=== PATIENT | female | born 1995 | race African-American/Black ===

== ENCOUNTER 2016-04-04 16:56 | Emergency (ER) | payer OTHER ==
[~2016-04-04] VITALS: Ht 162.6 cm; Wt 62.0 kg
[~2016-04-04 16:56] MED LIST: AMOX875 PO; BENZ100 PO; IBUP600T26 PO; MMW SSP
[2016-04-04 16:57] VITALS: BP 121/92; PULSE 85; RESP 14; TEMP 98.8; O2SAT 98
--- NOTE | 2016-04-04 17:54 | PD ---
HPI Chief Complaint: Skin Problem Time Seen by Provider: 17:50 Travel History International Travel<30 days: No Contact w/Intl Traveler<30days: No Traveled to known affect area: No History of Present Illness HPI Patient is a 20-year-old female who presents emergency department for evaluation of a an abrasion to her left upper arm that she sustained while trying to run away from a dog. Patient states that she attempted to climb a metal fence to get away from the dog and she scratched her arm. She reports her mom made her come to the emergency department to be evaluated. Patient is unsure of her last tetanus vaccination. She denies any significant pain but states it's sore. She denies any other complaints at this time. [facility] Past Medical History Asthma: Yes Diminished Hearing: No Integumentary: Yes (ECZEMA) Immunizations Current: Yes : 0 Social History Alcohol Use: No Tobacco Use: No Substance Use: No Allergies-Medications (Allergen,Severity, Reaction): Coded Allergies: Claritin (Verified Allergy, Severe, 04/04/16) Tylenol (Verified Allergy, Severe, ANAPHYLAXIS, 04/04/16) Reported Meds & Prescriptions Reported Meds & Active Scripts Active Tessalon Perles (Benzonatate) 100 Mg Cap 100 Mg PO TID PRN Magic Mouthwash-Diphenhy Formula (Lidocaine/Diphenhydr/Alum/Mg/Simeth) Ml 5-10 Ml SSP 5 TIMES A DAY MAGIC MOUTHWASH CONTAINS 1/3 VISCOUS LIDOCAINE, 1/3 MAALOX, AND 1/3 BENADRYL. Amoxil (Amoxicillin) 875 Mg Tab 875 Mg PO BID 10 Days Ibuprofen 600 Mg Tab 600 Mg PO Q8 PRN Review of Systems Except as stated in HPI: all other systems reviewed are Neg Skin: Positive Other (abrasion to left upper arm) Physical Exam Narrative GENERAL: Well-nourished, well-developed patient. SKIN: Warm and dry. Superficial abrasion to inner left upper arm, no erythema or induration noted. HEAD: Normocephalic. EYES: No scleral icterus. No injection or drainage. NECK: Supple, trachea midline. No JVD or lymphadenopathy. CARDIOVASCULAR: Regular rate and rhythm without murmurs, gallops, or rubs. RESPIRATORY: Breath sounds equal bilaterally. No accessory muscle use. GASTROINTESTINAL: Abdomen soft, non-tender, nondistended. MUSCULOSKELETAL: No cyanosis, or edema. BACK: Nontender without obvious deformity. No CVA tenderness. Data Data Last Documented VS Vital Signs Date Time Temp Pulse Resp B/P Pulse Ox O2 Delivery O2 Flow Rate FiO2 04/04/16 16:57 98.8 85 14 121/92 98 Room Air MDM Medical Decision Making Medical Screen Exam Complete: Yes Emergency Medical Condition: Yes Interpretation(s) Vital Signs Date Time Temp Pulse Resp B/P Pulse Ox O2 Delivery O2 Flow Rate FiO2 04/04/16 16:57 98.8 85 14 121/92 98 Room Air Differential Diagnosis Cellulitis versus laceration versus contusion versus abrasion versus other Narrative Course Patient is a 20-year-old female who presents emergency for evaluation of an abrasion to her left upper arm that she sustained while climbing over a metal fence running away from a dog. Patient is unsure of her last tetanus vaccination. Wound is superficial, patient cleaned it thoroughly at home prior to arrival. Patient's tetanus vaccination will be updated in the emergency department today. Patient was encouraged to wash with soap and water and apply topical antibiotic ointment. She was encouraged to return to emergency department for any new or worsening symptoms or follow up with her primary care provider. Patient verbalized understanding of these instructions. Patient is stable for discharge. Diagnosis Primary Impression: Abrasion Additional Impression: Vaccine for tetanus toxoid Referrals: Primary Care Physician Patient Instructions: Abrasion (ED), General Instructions Additional Instructions: Follow-up with your primary doctor Keep wound clean and dry, wash with soap and water and apply topical antibiotic ointment Return to the emergency department for any new or worsening symptoms Med/Other Pt SpecificInfo: No Change to Meds Disposition: 01 DISCHARGE HOME Condition: Stable Dara Dowd Apr 04, 2016 17:54
[2016-04-04] MEDS ORDERED: TETANUS/DIPHTHERIA TOXOID ADULT 0.5 ML VIAL IM ONE (18:00)
== END 2016-04-04 18:09 | disposition home or self-care (01) ==
LOC: NEPB 16:56
DX: S40.812A Abrasion of left upper arm, initial encounter (principal); W22.8XXA Striking against or struck by other objects, initial encounter; Y93.02 Activity, running; Z23 Encounter for immunization
CPT/HCPCS: 90471; 90714

== ENCOUNTER 2016-05-02 19:45 | Emergency (ER) | payer OTHER ==
[~2016-05-02] VITALS: Ht 160 cm; Wt 67.0 kg
[2016-05-02 19:46] VITALS: BP 109/74; PULSE 90; RESP 16; TEMP 98.1; O2SAT 97
[2016-05-02] MEDS ORDERED: ALBU6.7H INH (21:36)
[2016-05-02] MEDS ORDERED: PRED-503 PO (21:36)
--- NOTE | 2016-05-02 21:38 | PD ---
HPI Chief Complaint: Cold / Flu Symptoms Time Seen by Provider: 21:36 Travel History International Travel<30 days: No Contact w/Intl Traveler<30days: No Traveled to known affect area: No History of Present Illness HPI 20-year-old black female presents to emergency Department with complaints of cough congestion for 2 weeks. She states that she feels congested, mild sore throat and general malaise. She denies any fever or chills. No sputum production. No shortness of breath or wheezing. No nausea vomiting. No abdominal pain or diarrhea. No dysuria frequency. Symptoms are moderate. PFSH Past Medical History Asthma: Yes Diminished Hearing: No Respiratory: Yes (ASTHMA) Integumentary: Yes (ECZEMA) Immunizations Current: Yes Tetanus Vaccination: < 5 Years Influenza Vaccination: Yes ?: Not LMP: 3 WKS AGO : 0 Social History Alcohol Use: No Tobacco Use: No Substance Use: No Allergies-Medications (Allergen,Severity, Reaction): Coded Allergies: Claritin (Verified Allergy, Severe, 05/02/16) Tylenol (Verified Allergy, Severe, ANAPHYLAXIS, 05/02/16) Reported Meds & Prescriptions Reported Meds & Active Scripts Active No Active Prescriptions or Reported Medications Review of Systems Except as stated in HPI: all other systems reviewed are Neg Physical Exam Narrative GENERAL: Well-developed, well-nourished in no acute distress. Nontoxic appearing. HEAD: Normocephalic, atraumatic. EYES: Pupils equal round and reactive. Extraocular motions intact. No scleral icterus. No injection or drainage. ENT: TMs clear without erythema. The external auditory canals clear. Nose: clear . Posterior pharynx is pink and moist. No tonsillar edema or exudate. Uvula midline. Airway patent. NECK: Trachea midline.Supple, nontender, moves head freely. No central bony tenderness or spasm. CARDIOVASCULAR: Regular rate and rhythm without murmurs, gallops, or rubs. RESPIRATORY: Clear to auscultation. Breath sounds equal bilaterally. No wheezes , rales, or rhonchi. GASTROINTESTINAL: Abdomen soft, non-tender, nondistended. No hepato-splenomegaly , or palpable masses. No guarding. EXTREMITIES: No clubbing, cyanosis, or edema. No joint tenderness, effusion, or edema noted. BACK: Nontender without deformity or crepitance. No flank tenderness. Data Data Last Documented VS Vital Signs Date Time Temp Pulse Resp B/P Pulse Ox O2 Delivery O2 Flow Rate FiO2 05/02/16 21:08 16 05/02/16 19:46 98.1 90 109/74 97 Room Air MDM Medical Decision Making Medical Screen Exam Complete: Yes Emergency Medical Condition: Yes Medical Record Reviewed: Yes Differential Diagnosis MDM: High Differential diagnoses: Pneumonia, bronchitis, URI, asthma, RAD, legionnaire's disease, SARS, ARDS, influenza, bronchiolitis, RSV,PE,CHF Narrative Course This is URI, RAD Diagnosis Primary Impression: URI (upper respiratory infection) Qualified Code: J06.9 - Viral upper respiratory tract infection Additional Impression: RAD (reactive airway disease) Qualified Code: J45.21 - RAD (reactive airway disease), mild intermittent, with acute exacerbation Patient Instructions: General Instructions Additional Instructions: Rest. Increase fluids. Tylenol and Advil. Robitussin-DM. prednisone, and albuterol. Followup with your Dr. in one week. Return to the ER for any problems. Med/Other Pt SpecificInfo: Prescription(s) given Scripts Albuterol 6.7 GM Inh (Proventil Hfa 6.7 GM Inh)90 Mcg/Act Aer2 Puff INH Q4-6H PRN (SHORTNESS OF BREATH) #1 INHALER Prov:Miladis Zeng MD 05/02/16 Prednisone (Deltasone)20 Mg Tab20 Mg PO BID #10 TAB Prov:Miladis Zeng MD 05/02/16 Disposition: 01 DISCHARGE HOME Condition: Stable Sagar Love May 02, 2016 21:38
== END 2016-05-02 21:50 | disposition home or self-care (01) ==
LOC: NEPB 19:45
DX: J06.9 Acute upper respiratory infection, unspecified (principal); J45.21 Mild intermittent asthma with (acute) exacerbation
CPT/HCPCS: 99283

== ENCOUNTER 2016-10-24 18:52 | Emergency (ER) | payer OTHER ==
[~2016-10-24] VITALS: Ht 160 cm; Wt 70.0 kg
[~2016-10-24 18:52] MED LIST changes: +ALBU6.7H INH; -AMOX875 PO; -BENZ100 PO; -IBUP600T26 PO; -MMW SSP; +PRED-503 PO
[2016-10-24 18:54] VITALS: BP 116/68; PULSE 60; RESP 14; TEMP 98; O2SAT 99
[2016-10-24] MEDS ORDERED: CYCLOBENZAPRINE HCL 10 MG TAB PO ONE (20:00)
[2016-10-24] MEDS ORDERED: traMADol HCL 50 MG TAB PO ONE (20:00)
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
[2016-10-24] MEDS ORDERED: IBUP800T23 PO (20:37)
[2016-10-24] MEDS ORDERED: CYCL1TAB29 PO (20:37)
== END 2016-10-24 21:00 | disposition home or self-care (01) ==
LOC: NEPK 18:52
DX: S16.1XXA Strain of muscle, fascia and tendon at neck level, initial encounter (principal); S60.212A Contusion of left wrist, initial encounter; J45.909 Unspecified asthma, uncomplicated; Z88.6 Allergy status to analgesic agent; Z88.8 Allergy status to other drugs, medicaments and biological substances; Y04.8XXA Assault by other bodily force, initial encounter
CPT/HCPCS: 72050; 73110; 99283; L3908